=== PATIENT | male | born 1990 | race Caucasian/White ===

== ENCOUNTER 2018-02-23 14:02 | Emergency (ER) | payer OTHER ==
[~2018-02-23] VITALS: Ht 175.3 cm; Wt 78.5 kg
[~2018-02-23 14:02] MED LIST: AUGMENTIN 875 M1 TAB PO; BENTYL20 M1 PO; DICYCLOMINE HCL10 M1 PO; HYDROCODONE/ACE1 TA1 PO; METHYLPHENIDATE36 M2 PO; REGLAN10 M1 PO; SERTRALINE HCL50 MG PO; VICODIN 5-3001 EACH PO; VITAMIN D31000 UNI2 PO; ZOFRAN ODT4 M1 SL
--- NOTE | 2018-02-23 15:01 | CT SCAN REPORT ---
EXAMINATION: CT HEAD WITHOUT CONTRAST CLINICAL INFORMATION: Worst headache of life. Rule out bleed. COMPARISON: None TECHNIQUE: Contiguous axial imaging was performed from the skull base to vertex without intravenous administration of contrast. DLP: 614 mGy-cm FINDINGS: There is no evidence of acute intracranial hemorrhage or territorial infarction. No abnormal mass effect or midline shift is seen. [place]illa to white matter differentiation is well preserved. No extra-axial fluid collections are identified. The ventricles are normal in size. There is no abnormal attenuation within the brain parenchyma. The osseous structures and soft tissues are normal. There are hypoplastic frontal sinuses. The visualized ethmoid and sphenoid sinuses are clear. Visualized mastoid air cells are well developed and clear. There is aeration of the petrous apices bilaterally, left greater than right. IMPRESSION: No acute intracranial pathology.
--- NOTE | 2018-02-23 16:04 | ED HEADACHE COMPLAINT ---
History of Present Illness General Chief Complaint: Headache Stated Complaint: WHEATLEY; BLURRY VISION; VOMITING X 3 DAYS Source: patient Exam Limitations: no limitations Vital Signs & Intake/Output Vital Signs & Intake/Output Vital Signs Date Time Temp Pulse Resp B/P B/P Pulse O2 O2 Flow FiO2 Mean Ox Delivery Rate 02/23 1634 Room Air Room Air 02/23 1621 98.0 61 14 124/82 97 Room Air Room Air 02/23 1415 97.4 84 18 146/100 98 Room Air Allergies Coded Allergies: shrimp (Severe, ANAPHYLAXIS 02/26/16) Triage Note: PT TO ER C/C "WORST HEADACHE OF MY LIFE" STARTED ON TUESDAY, PAIN WORSE WHEN BEARING DOWN. UNRELIEVED BY TYLENOL. SENT IN BY URGENT CARE FOR STAT HEAD CT AND NEURO CONSULT. BP 146/100. + BLURRED VISION +N/V +PHOTOSENSITIVITY Triage Nurses Notes Reviewed? yes Onset: Gradual Duration: getting worse Timing: recent history Severity Numbers: 8 Head Injury Location: temporal HPI: Patient is a 27-year-old male with a past medical history of Crohn's currently is not taking medications for WHO presentS TO emergency room with concern since Tuesday of A bilateral temporal gradual onset headache Patient states that symptoms have worsened the past 2 days where he has had associated symptoms of nausea without vomiting photophobia and difficulty concentrating and blurred vision. Patient denies any acute onset or thunderclap headache Denies any family history of migraines, Denies any fever chills neck pain facial droop extremity weakness paresthesia Patient has been taking Tylenol with no relief of symptoms (Aamir FARLEY,Liu) Reconcile Medications AMOXICILLIN/POTASSIUM CLAV (Augmentin 875-125 Tablet) 875 MG/125 MG TAB 1 TAB PO BID dental abscess Butalb/Acetaminophen/Caffeine (Zebutal 50-325-40 MG Capsule) 50 MG-325 MG-40 MG CAPSULE 1 TAB PO TID PRN MIGRAINE Cholecalciferol (Vitamin D3) 1,000 UNIT TABLET 1 TAB PO DAILY SUPPLEMENT ( Reported) Dicyclomine HCl 10 MG CAPSULE 1 CAP PO Q6P PRN NAUSEA/VOMITING (Reported) Dicyclomine HCl (Bentyl) 20 MG TABLET 1 TAB PO Q8P PRN SPASMS Hydrocodone/Acetaminophen (Vicodin 5-300 MG Tablet) 1 EACH TABLET 1-2 TAB PO Q6P PRN PAIN HYDROCODONE/ACETAMINOPHEN (Hydrocodon-Acetaminophen 5-325) 5 MG-325 MG TABLET 1 TAB PO Q6HR PRN PAIN Meloxicam (Mobic) 15 MG TABLET 1 TAB PO DAILY PRN MIGRAINE Methylphenidate HCl (Methylphenidate ER) 36 MG TAB.ER.24 1 TAB PO QAM ADHD ( Reported) Metoclopramide HCl (Reglan) 10 MG TABLET 1 TAB PO Q8P PRN NAUSEA 30 minutes before meals and bedtime Ondansetron (Zofran Odt) 4 MG TAB.RAPDIS 1 TAB SL Q6P PRN NAUSEA Ondansetron HCl (Zofran) 4 MG TABLET 1 TAB PO Q6-8P PRN NAUSEA Sertraline HCl 50 MG TABLET 1 TAB PO DAILY MENTAL HEALTH (Reported) (Wade Ramirez DO) Past History Travel History Traveled to [place] past 21 day No Medical History Any Pertinent Medical History? see below for history Gastrointestinal: Crohn's disease Surgical History Surgical History: non-contributory Psychosocial History What is your primary language Maltese Tobacco Use: Never used Family History Hx Contributory? No (Liu Foote) Review of Systems Review of Systems Constitutional: Reports: no symptoms. Eyes: Reports: see HPI. Ears, Nose, Throat, Mouth: Reports: no symptoms. Respiratory: Reports: no symptoms. Cardiovascular: Reports: no symptoms. Gastrointestinal/Abdominal: Reports: see HPI, nausea. Denies: abdominal pain. Genitourinary: Reports: no symptoms. Musculoskeletal: Reports: no symptoms. Skin: Reports: no symptoms. Neurological/Psychological: Reports: see HPI, headache. Hematologic/Endocrine: Reports: no symptoms. Endocrine: Reports: no symptoms. Immunologic/Allergic: Reports: no symptoms. All Other Systems: Reviewed and Negative (Liu Foote) Physical Exam Physical Exam General Appearance: well developed/nourished, no apparent distress, alert, comfortable Head: atraumatic Eyes: Bilateral: normal appearance, PERRL, EOMI. Ears, Nose, Throat: normal pharynx, normal ENT inspection, hearing grossly normal Neck: normal inspection, supple Respiratory: normal breath sounds, chest non-tender Cardiovascular: regular rate/rhythm Cranial Nerves: normal hearing, normal speech, PERRL Coordination/Gait: normal finger to nose, normal gait Skin: intact, normal color, warm/dry Comments: Cranial nerves II through XII intact negative Romberg negative cerebellar testing Core Measures Sepsis Present: No Sepsis Focused Exam Completed? No (Liu oFote) Progress Differential Diagnosis: carotid dissection, cav sinus thromb, cluster WHEATLEY, encephalitis, IC mass/tumor, intracranial Hem., meningitis, migraine WHEATLEY, sinusitis, SSS thrombosis, subarach. Hem., tension WHEATLEY, temporal arteritis, TMJ syndrome, viral cephalgia Plan of Care: Patient on initial presentation was resting complete bedside, patient's blood pressure was elevated when she manual blood pressure will be obtained, CT scan was resulted I discussed results with patient no acute process I discussed with patient that a CT scan does not entirely rule out an intracranial hemorrhage due to the longevity of his symptoms however he was educated that a lumbar puncture ultimately will rule this diagnosis out where he was aware of this and declines this evaluation at this time in the emergency room. Patient also was offered medications in the emergency room via by mouth or IV where he states that he wanted a prescription to go home and take them then and wanted to be safely discharged, And manual blood pressure was obtained in which no concerns of hypertensive urgency or hypertension at this time. Upon discharge patient looks well no apparent distress and will comply with discharge instructions and had no questions (Liu Foote) Departure Departure Disposition: HOME OR SELF CARE Condition: Stable Clinical Impression Primary Impression: Migraine Referrals: Mark LADD,Michael Coronel (PCP/Family) Additional Instructions: As discussed begin the prescription meloxicam for headaches and Fioricet for breakthrough headache relief and Zofran for nausea. If symptoms worsen or if he develop a new concerning symptoms return to emergency room. If no better in 5 days follow-up with neurologist Dr. Hernandez. IF symptoms worsen return to emergency room Prescriptions waiting at [place] [facility]. Departure Forms: Customer Survey General Discharge Information Prescriptions: Current Visit Scripts Meloxicam (Mobic) 1 TAB PO DAILY PRN MIGRAINE #12 TAB Butalb/Acetaminophen/Caffeine (Zebutal 50-325-40 MG Capsule) 1 TAB PO TID PRN MIGRAINE #12 TAB Ondansetron HCl (Zofran) 1 TAB PO Q6-8P PRN NAUSEA #8 TAB (Liu Foote) PA/AUTO HEATER MECHANIC Co-Sign Statement Statement: ED Attending supervision documentation- [] I saw and evaluated the patient. I have also reviewed all the pertinent lab results and diagnostic results. I agree with the findings and the plan of care as documented in the PA's/AUTO HEATER MECHANIC's documentation. [X] I have reviewed the ED Record and agree with the PA's/AUTO HEATER MECHANIC's documentation. [] Additions or exceptions (if any) to the PAs/AUTO HEATER MECHANIC's note and plan are summarized below: [] (Wade Ramirez DO)
[2018-02-23 16:21] VITALS: BP 124/82
[2018-02-23] MEDS ORDERED: MOBIC15 M1 PO (16:28)
[2018-02-23] MEDS ORDERED: ZEBUTAL 50-3251 EACH PO (16:28)
[2018-02-23] MEDS ORDERED: ZOFRAN4 M2 PO (16:28)
== END 2018-02-23 16:36 ==
LOC: ERH 14:02
DX: G43.909 Migraine, unspecified, not intractable, without status migrainosus (principal)